=== PATIENT | female | born 1975 | race Hispanic/Latino ===

== ENCOUNTER 2023-06-05 21:08 | Emergency (ER) | payer MEDICARE ==
[~2023-06-05] VITALS: Ht 154.9 cm; Wt 75.8 kg
[2023-06-05] MEDS ORDERED: CITALOPRAM HBR10 MG PO (21:24)
[2023-06-05] MEDS ORDERED: ABILIFY2 MG PO (21:24)
[2023-06-05] MEDS ORDERED: NEURONTIN300 MG PO (21:24)
[2023-06-05] MEDS ORDERED: VITAMIN D250 MC1 PO (21:25)
[2023-06-05] MEDS ORDERED: VITAMIN C100 MG PO (21:25)
[2023-06-05] MEDS ORDERED: ONDANSETRON ODT8 MG PO ×2 (21:25→22:26)
[2023-06-05] MEDS ORDERED: XANAX2 MG PO (21:25)
[2023-06-05 21:59] LABS: BASOPHILS 0.1 % (0-2); EOSINOPHILS 0.3 % (0-6); HEMATOCRIT 39.1 % (35.0-50.0); LYMPHOCYTES 8.4 % (24-44); MCH 29.5 (27-36); MCHC 33.2 g/dl (30-36); MCV 88.9 fl (81-99); MONOCYTES 5.5 % (0-12); NEUTROPHILS 85.7 % (39-80); PLATELET COUNT 233 K/uL (140-440); RDW 13.1 (10.5-15.0)
[2023-06-05 22:10] LABS: ALBUMIN 3.2 g/dL (3.4-5.0); ALBUMIN/GLOBULIN RATIO 0.84 (1.1-2.4); ANION GAP 16.6 (7-21); BILIRUBIN, TOTAL 0.5 ng/dL (0.2-1.0); BUN/CREATININE RATIO 24.13 (6.0-28.6); CALCIUM 8.2 mg/dL (8.5-10.1); CREATININE, SERUM 0.87 mg/dL (0.55-1.02); POTASSIUM 3.6 mmol/L (3.5-5.1)
[2023-06-05] MEDS ORDERED: METRONIDAZOLE500 MG PO (22:26)
[2023-06-05] MEDS ORDERED: CIPRO500 MG PO (22:26)
[2023-06-05] MEDS ORDERED: TRAMADOL HCL50 MG PO (22:26)
[2023-06-05 23:05] VITALS: BP 103/74
== END 2023-06-05 23:05 | disposition home or self-care (01) ==
LOC: ED 21:08
PROVIDERS: Family Medicine
DX: K57.32 Diverticulitis of large intestine without perforation or abscess without bleeding (principal); Z79.899 Other long term (current) drug therapy
CPT/HCPCS: 36415; 74177; 80053; 83690; 84703; 85025; 96361; 96375; 99284-25; A9270; J2270; J2405; J7030; Q9967